=== PATIENT | male | born 1975 | race Caucasian/White ===

== ENCOUNTER 2017-03-09 01:51 | Emergency (ER) | payer BC ==
[2017-03-09] MEDS ORDERED: ONDANSETRON HCL 4 MG/2 ML VIAL ONE (02:51)
[2017-03-09] MEDS ORDERED: IPRATROPIUM/ALBUTEROL 0.5/3 MG 3 ML AMPUL.NEB INHALATION ONE (02:51)
[2017-03-09] MEDS ORDERED: LORazepam 1 MG TABLET ONE (02:52)
--- NOTE | 2017-03-09 06:46 | ER NURSING DOCUMENTATION ---
Nurse's Notes [facility] Name:Rohith Ansari Age:41 yrs Sex:Male :1975 Arrival Date:03/09/2017 Time:01:51 Bed4 Private MD:Physician, No Diagnosis:Dyspnea-: Due to High Altitude Effect;Dehydration;Anxiety Reaction Presentation: 03/09 01:57 Presenting complaint: Patient states: feeling short of breathfor 5 days, feels like he lb cannot take deep breath. denies fever. had vomiting and diarrhea 2 days ago that has resolved. Transition of care: patient was not received from another setting of care. Notified ED Physician of Dr. Parada notified. 01:57 Acuity: GOMEZ 3 lb 01:57 Method Of Arrival: Walk In lb Triage Assessment: 02:04 General: Appears in no apparent distress, Behavior is appropriate for age. Pain: Denies lb pain. Respiratory: Airway is patent Trachea midline Respiratory effort is even, unlabored, Respiratory pattern is regular, Breath sounds are clear bilaterally. Reports shortness of breath Onset: The symptoms/episode began/occurred 5 days ago, the patient has moderate shortness of breath. Historical: - Allergies: No known drug Allergies; - Home Meds: 1. Lisinopril Oral - PMHx: Hypertension; - PSHx: Knee surgery; HERNIA REPAIR; - Tetanus: < 10 years. - Ebola Screening: : Patient denies exposure to infectious person. Patient denies travel to an Ebola-affected area in the 21 days before illness onset. . - Immunization history: Flu Vaccine < 1 year. - Social history: Smoking status: Patient states was never smoker of tobacco. Patient uses alcohol but reports only rare drinking. Screenin:06 Infectious Disease Risk None. Abuse screen: Denies threats or abuse. Denies injuries lb from another. Nutritional screening: No deficits noted. Assessment: 02:05 See Triage Assessment done by same RN. lb Vital Signs: 02:05 BP 151 / 105; Pulse 70; Resp 16; Temp 98(TE); Pulse Ox 97% on R/A; Weight 136.08 kg; lb Height 6 ft. (182.88 cm); Pain 0/10; 03:23 BP 126 / 82; Pulse 71; Resp 15; Pulse Ox 92% on R/A; Pain 0/10; lb 06:44 BP 140 / 83; Pulse 78; Resp 14; Pulse Ox 99% on R/A; Pain 0/10; lb 02:05 Body Mass Index 40.69 (136.08 kg, 182.88 cm) lb Haja Coma Score: 05:03 Eye Response: spontaneous(4). Verbal Response: oriented(5). Motor Response: obeys cd commands(6). Total: 15. ED Course: 01:52 Patient arrived in ED. ma1 01:52 Physician, No is Private Physician. ma1 01:56 Kathi Patricia is Primary Nurse. lb 02:03 Triage completed. lb 02:06 Valuables Remains with patient. lb 02:32 Angel Parada MD is Attending Physician. cd Administered Medications: 02:46 Drug: NS 0.9% 1000 ml; Route: IV; Rate: bolus; Site: left antecubital; lb 06:43 Follow up: IV Status: Completed infusion; IV Intake: 1000ml lb 02:46 Drug: Zofran 4 mg; Route: IVP; Infused Over: 2 mins; Site: left antecubital; lb 06:43 Follow up: Response: Nausea is decreased lb 02:46 Drug: DuoNeb (Albuterol 2.5 mg, Atrovent 0.5 mg); 3 ml; Route: Nebulizer; lb 06:43 Follow up: Response: Wheezing diminished lb 02:56 Drug: Ativan 1 mg; Route: PO; lb 06:43 Follow up: Response: Anxiety decreased lb 03:23 Drug: NS 0.9% 1000 ml; Route: IV; Rate: 150 ml/hr; Site: left antecubital; lb 06:43 Follow up: IV Status: Infusion discontinued; IV Intake: 300ml lb Intake: 06:43 IV: 1000ml; Total: 1000ml. lb 06:43 IV: 300ml; Total: 1300ml. lb Outcome: 05:07 Discharge ordered by . cd 06:44 Discharged to [place] lb 06:44 Condition: improved 06:44 Discharge Assessment: Patient awake, alert and oriented x 3. No cognitive and/or functional deficits noted. Patient verbalized understanding of disposition instructions. 06:44 Instructed on discharge instructions, follow up and referral plans. 06:44 IV D/Milo 06:45 Patient left the ED. lb Signatures: Angel Parada MD MD Kathi Patricia lb [place], [place] ma1
--- NOTE | 2017-03-09 06:46 | ER PHYSICIAN DOCUMENTATION ---
Physician Documentation [facility] Name:Rohith Ansari Age:41 yrs Sex:Male :1975 Arrival Date:03/09/2017 Time:01:51 Bed4 Private MD:Physician, No ED Angel Del Toro Disposition: 03/09 05:06 Critical Care: not applicable. cd 05:13 Chart complete. cd Disposition: 03/09/17 05:07 Discharged to Home/Self Care. Impression: Dyspnea - : Due to High Altitude Effect, Dehydration, Anxiety Reaction. - Condition is Fair. - Discharge Instructions: DEHYDRATION (5y-Adult), DYSPNEA, Anguish - ANXIETY REACTION. - Medical Reconciliation form form. - Follow up: Private Physician; When: 4- 6 days; Reason: Recheck today's complaints, Continuance of care. - Problem is new. - Symptoms are resolved. - Notes: Avoid Alcohol. Drink 2 quarts of water every day. Descend from this elevation as soon as possible. Take Tylenol for headache or pain. Do not go to higher elevation. HPI: 02:20 This 41 yrs old Male presents to ER via Walk In with complaints of Shortness cd Of Breath, Dizziness. 02:20 The patient has shortness of breath at rest, that occurred at home, and the patient has cd a history of Sleep Apnea. Patient arrived from [place] 4 days ago. he has had insomnia, SOB, nausea, vomiting, feeling of claustrophobia and unable to take a deep breath. He has avoided alcohol and has been trying to push Gatorade. Tonight his symptoms were worse and he came in for evaluation. Onset: The symptom(s)/episode began/occurred acutely, yesterday. 02:20 Duration: The symptoms are intermittent. Associated signs and symptoms: Pertinent cd positives: nausea, vomiting, Pertinent negatives: chest pain, productive cough, diaphoresis, dizziness, fever, hemoptysis, numbness in extremities. Severity of symptoms: At their worst the symptoms were moderate in the emergency department the symptoms are unchanged. Risk Factors Risk factors for coronary artery disease include: A history of hypertension. The patient has not experienced similar symptoms in the past. The patient has not recently seen a physician. Historical: - Allergies: No known drug Allergies; - Home Meds: 1. Lisinopril Oral - PMHx: Hypertension; - PSHx: Knee surgery; HERNIA REPAIR; - Tetanus: < 10 years. - Ebola Screening: : Patient denies exposure to infectious person. Patient denies travel to an Ebola-affected area in the 21 days before illness onset. . - Immunization history: Flu Vaccine < 1 year. - Social history: Smoking status: Patient states was never smoker of tobacco. Patient uses alcohol but reports only rare drinking. ROS: 04:59 Eyes: Negative for injury, pain, redness, discharge, blurry vision and loss of vision. cd ENT: Negative for injury, pain, epistaxis and discharge. Neck: Negative for injury, pain, stiffness and swelling. Cardiovascular: Negative for chest pain, palpitations, edema and pleuritic pain. Back: Negative for injury, pain or muscle spasms. : Negative for injury, bleeding, discharge, swelling, dysuria, frequency or urgency. MS/Extremity: Negative for injury, deformity, edema, calf tenderness, pain or coldness. Skin: Negative for injury, rash, itching and discoloration. 04:59 Neuro: Negative for headache, weakness, numbness, tingling, and seizure. cd 04:59 Constitutional: Positive for poor PO intake, Negative for body aches, chills, fever. 04:59 Respiratory: Positive for shortness of breath, Negative for cough, dyspnea on exertion, hemoptysis, orthopnea, pleurisy, wheezing. 04:59 Abdomen/GI: Positive for nausea, vomiting, diarrhea, anorexia, Negative for abdominal pain, abdominal distension, hematemesis, black/tarry stool, rectal bleeding. 04:59 Psych: Positive for anxiety. 04:59 All other systems are negative. Exam: Head/Face: Normocephalic, atraumatic. Eyes: Pupils equal round and reactive to light, extra-ocular motions intact. Lids and lashes normal. Conjunctiva and sclera are non-icteric and not injected. Cornea within normal limits. Periorbital areas with no swelling, redness, or edema. ENT: Nares patent. No nasal discharge, no septal abnormalities noted. Tympanic membranes are normal and external auditory canals are clear. Oropharynx with no redness, swelling, or masses, exudates, or evidence of obstruction, uvula midline. Mucous membranes dry Neck: Trachea midline, no thyromegaly or masses palpated, and no cervical lymphadenopathy. Supple, full range of motion without nuchal rigidity, or vertebral point tenderness. No Meningismus. 05:03 Chest/axilla: Normal chest wall appearance and motion. Nontender with no deformity. cd No lesions are appreciated. Abdomen/GI: Soft, non-tender, with normal bowel sounds. No distension or tympany. No guarding or rebound. No evidence of tenderness throughout. Back: No spinal tenderness. No costovertebral tenderness. Full range of motion. Skin: Warm, dry with normal turgor. Normal color with no rashes, no lesions, and no evidence of cellulitis. MS/ Extremity: Pulses equal, no cyanosis. Neurovascular intact. Full, normal range of motion. 05:03 Neuro: Awake and alert, GCS 15, oriented to person, place, time, and situation. Cranial nerves II-XII grossly intact. Motor strength 5/5 in all extremities. Sensory grossly intact. Cerebellar exam normal. Normal gait. 05:03 Constitutional: The patient appears alert, awake, non-diaphoretic, non-toxic, well developed, well nourished, anxious, in obvious distress, mildly distressed. 05:03 Cardiovascular: Rate: normal, Rhythm: regular, Pulses: no pulse deficits are appreciated, Heart sounds: normal, Edema: is not appreciated. 05:03 Respiratory: the patient does not display signs of respiratory distress, Respirations: normal, no acute changes, Breath sounds: are normal, clear throughout. 05:03 Psych: Behavior/mood is pleasant, cooperative, anxious, Affect is calm, Oriented to person, place, time, Patient has no thoughts/intents to harm self or others. Judgement / Insight is normal. Memory is normal. Delusions/hallucinations are not present. Vital Signs: 02:05 BP 151 / 105; Pulse 70; Resp 16; Temp 98(TE); Pulse Ox 97% on R/A; Weight 136.08 kg; lb Height 6 ft. (182.88 cm); Pain 0/10; 03:23 BP 126 / 82; Pulse 71; Resp 15; Pulse Ox 92% on R/A; Pain 0/10; lb 06:44 BP 140 / 83; Pulse 78; Resp 14; Pulse Ox 99% on R/A; Pain 0/10; lb 02:05 Body Mass Index 40.69 (136.08 kg, 182.88 cm) lb Haja Coma Score: 05:03 Eye Response: spontaneous(4). Verbal Response: oriented(5). Motor Response: obeys cd commands(6). Total: 15. MDM: 02:02 Data interpreted: Pulse oximetry: on room air is 92 %. Interpretation: normal. cd 02:30 Differential diagnosis: Anxiety Reaction Psychogenic pulmonary edema, High Altitude cd Effect. Antibiotic administration: Not indicated. 02:32 Patient medically screened. cd 02:35 Data reviewed: vital signs, nurses notes, old medical records, and as a result, I will cd continue to observe the patient, administer IV fluids, NS bolus, NS maintenence, prescribe sedation medication, lorazepam. 05:00 Response to treatment: the patient's symptoms have markedly improved after treatment, cd the patient's condition has returned to base line, the patient is now symptom free, patient is well hydrated. and as a result, I will discharge patient. 05:06 Counseling: I had a detailed discussion with the patient and/or guardian regarding: the cd historical points, exam findings, and any diagnostic results supporting the discharge/admit diagnosis, the need for outpatient follow up, for a recheck, with the patient's primary care provider, to return to the emergency department if symptoms worsen or persist or if there are any questions or concerns that arise at home. Dispensed Medications: 02:46 Drug: NS 0.9% 1000 ml; Route: IV; Rate: bolus; Site: left antecubital; lb 06:43 Follow up: IV Status: Completed infusion; IV Intake: 1000ml lb 02:46 Drug: Zofran 4 mg; Route: IVP; Infused Over: 2 mins; Site: left antecubital; lb 06:43 Follow up: Response: Nausea is decreased lb 02:46 Drug: DuoNeb (Albuterol 2.5 mg, Atrovent 0.5 mg); 3 ml; Route: Nebulizer; lb 06:43 Follow up: Response: Wheezing diminished lb 02:56 Drug: Ativan 1 mg; Route: PO; lb 06:43 Follow up: Response: Anxiety decreased lb 03:23 Drug: NS 0.9% 1000 ml; Route: IV; Rate: 150 ml/hr; Site: left antecubital; lb 06:43 Follow up: IV Status: Infusion discontinued; IV Intake: 300ml lb Signatures: Angel Parada MD MD cd [facility], Kathi lb
== END 2017-03-09 06:46 | disposition home or self-care (01) ==
LOC: ER 01:51
DX: R06.00 Dyspnea, unspecified (principal); E86.0 Dehydration; T70.29XA Other effects of high altitude, initial encounter; F41.9 Anxiety disorder, unspecified; R11.2 Nausea with vomiting, unspecified; R19.7 Diarrhea, unspecified; R06.02 Shortness of breath; I10 Essential (primary) hypertension; Z79.899 Other long term (current) drug therapy
CPT/HCPCS: 94640; 96361; 96374; 99284; J2405; J7620